=== PATIENT | female | born 1980 | race Caucasian/White ===

== ENCOUNTER 2017-07-08 18:01 | Emergency (ER) | payer OTHER ==
[2017-07-08 18:08] VITALS: BP 174/93; PULSE 69; RESP 16; O2SAT 96
[2017-07-08] MEDS ORDERED: IBUPROFEN 600 MG TAB PO ONE (18:31)
--- NOTE | 2017-07-08 18:32 | EDPHY ---
H & P Stated Complaint: ice skating, fell onto l knee, cant bend leg Time Seen by Provider: 07/08/17 18:32 HPI/ROS: HPI: This is a 36-year-old female who presents with Chief Complaint: ice skating, fell onto l knee, cant bend leg Location: Left knee Quality: Injury Duration: Prior to arrival Signs and Symptoms: No bleeding, no radiation, no numbness, no weakness, no tingling, no incontinence, + decreased range of motion, + swelling, + pain Timing: Acute Severity: Moderate to severe Context: The patient is here visiting [facility] from [place]. Today she was ice skating with her family when she slipped on the ice and fell directly on her left knee. She felt immediate pain, inability to extend her knee and difficulty bearing weight. Pain is constant, moderate to severe, nonradiating in nature. No [id number] medications or ice applied. She denies hitting her head/LOC/neck injury during the fall. at bedside reports that she is at her baseline. Modifying Factors: None Comment: ROS: see HPI Constitutional: No fever, no chills, no weight loss Eyes: No blurred vision Respiratory: No shortness of breath, no cough Cardiovascular: No chest pain Gastrointestinal: No nausea, no vomiting no diarrhea Genitourinary: No dysuria Extremities: No myalgias Neurologic: No weakness, no numbness Skin: No rashes Hematologic: No bruising, no bleeding MEDICAL/SURGICAL/SOCIAL HISTORY: Medical history: Depression Surgical history: Denies Social history: . Lives in [place] CONSTITUTIONAL: Pleasant adult female, awake and alert, no obvious distress HEENT: Atraumatic and normocephalic, PERRL, EOMI. Tympanic membranes clear. Oropharynx clear, no exudate and moist pink mucosa. Airway patent. No lymphadenopathy. No meningismus. Cardiovascular: Normal S1/S2, regular rate, regular rhythm, without murmur rub or gallop. PULMONARY/CHEST: Symmetrical and nontender. Clear to auscultation bilaterally. Good air movement. No accessory muscle usage. ABDOMEN: Soft, nondistended, nontender, no rebound, no guarding, no peritoneal signs, no masses or organomegaly. No CVAT. EXTREMITIES: 2/2 pulses, strength 5/5, LEFT KNEE: Moderate effusion, mild medial and lateral joint line tenderness, full extension to 180, extensor mechanism deficit. no pain with varus and valgus exam. No pain with anterior drawer or posterior drawer test. no clubbing, no cyanosis or edema. NEUROLOGICAL: no focal neuro deficits. GCS 15. SKIN: Warm and dry, no erythema. no rash. Good capillary refill. Source: Patient, Family () Exam Limitations: No limitations - Personal History Current Tetanus Diphtheria and Acellular Pertussis (TDAP): No - Medical/Surgical History Other PMH: depression - Social History Smoking Status: Never smoked Constitutional: Initial Vital Signs Heart Rate 69 07/08/17 18:06 Respiratory Rate 16 07/08/17 18:06 Blood Pressure 174/93 H 07/08/17 18:06 O2 Sat (%) 96 07/08/17 18:06 O2 Delivery Mode Room Air O2 (L/minute) 37.1 Allergies/Adverse Reactions: No Known Allergies Allergy (Unverified 07/08/17 18:05) Home Medications: Medication Instructions Recorded Depression Med 07/08/17 oxyCODONE/APAP 5/325 [Percocet 1 - 2 tab PO Q4H PRN #12 tab 07/08/17 5/325 (*)] Medical Decision Making - Diagnostics Imaging Results: Imaging Impressions Knee X-Ray 07/08/17 18:31 Impression: Acute distracted transverse patellar fracture. ED Course/Re-evaluation: Left knee x-ray ordered and shows transverse patellar fracture with moderate effusion. Extensor mechanism deficit noted. Spoke with Dr. Phillips who agrees with knee immobilizer, crutches, weight- bearing as tolerated, pain control. Dr. Rao advises patient to call the office tomorrow to be followed up with the next 1-2 days as she will need ORIF. No signs of neurovascular compromise/tenting of skin/compartment syndrome/ extremities and joints examined above and below area of concern and are neurovascularly intact. This patient was seen under the supervision of my secondary supervising physician. I evaluated care for this patient independently. Discussed this patient with Dr. Paz who did not see the patient. Patient's presentation, labs /imaging, treatment and plan of care were discussed with secondary supervising physician. Differential Diagnosis: Differential diagnosis includes but is not limited to patellar fracture and, extensor mechanism injury, ligament injury, meniscus injury, contusion, sprain. - Data Points Medications Given: Discontinued Medications Ibuprofen (Motrin) 600 mg PO EDNOW ONE Stop: 07/08/17 18:32 Last Admin: 07/08/17 19:13 Dose: 600 mg Departure - Departure Disposition: Home, Routine, Self-Care Clinical Impression: Ligament tear Patellar fracture Qualifiers: Encounter type: initial encounter Fracture type: closed Fracture morphology: longitudinal Fracture alignment: displaced Laterality: left Qualified Code(s): S82.022A - Displaced longitudinal fracture of left patella, initial encounter for closed fracture Condition: Good Instructions: Patellar Fracture (ED), Patellar Fracture Repair (DC) Additional Instructions: Wear knee immobilizer 10/02 until seen by Orthopedics. Use crutches to aid ambulation. Weight-bearing as tolerated according to pain level. Take Tylenol 650 mg every 4 hours and/or Ibuprofen 600 mg every 8 hours with food as needed for pain. Apply ice for 30 minutes at a time; 2-3 times per day for the next 1-[address] Phillips's office tomorrow for follow-up appointment in 1-2 days. It appears that you will need surgery. . Referrals: Shai Phillips MD [Medical Doctor] - As per Instructions Prescriptions: oxyCODONE/APAP 5/325 [Percocet 5/325 (*)] 1 - 2 tab PO Q4H PRN #12 tab PRN Reason: Pain, Severe
== END 2017-07-08 19:30 | disposition home or self-care (01) ==
DX: S82.022A Displaced longitudinal fracture of left patella, initial encounter for closed fracture (principal); S83.92XA Sprain of unspecified site of left knee, initial encounter; V00.131A Fall from skateboard, initial encounter; Y99.8 Other external cause status; Y93.23 Activity, snow (alpine) (downhill) skiing, snowboarding, sledding, tobogganing and snow tubing
CPT/HCPCS: L1830